=== PATIENT | female | born 1990 | race Caucasian/White ===

== ENCOUNTER 2022-09-27 02:04 | Emergency (ER) | payer OTHER, SELFPAY ==
--- NOTE | 2022-09-27 | ECG_ITS ---
Test Reason : CP Blood Pressure : / mmHG Vent. Rate : 092 BPM Atrial Rate : 092 BPM P-R Int : 122 ms QRS Dur : 074 ms QT Int : 368 ms P-R-T Axes : 082 065 066 degrees QTc Int : 455 ms Normal sinus rhythm Possible Left atrial enlargement Borderline ECG No previous ECGs available Referred By: Generic ED Physician Electronically Signed By:BRENTON KAUFFMAN
--- NOTE | ~2022-09-27 | XR_ITS ---
EXAMINATION: XR CHEST CLINICAL INFORMATION: Chest pain COMPARISON: None available. TECHNIQUE: 2 views of the chest were obtained. FINDINGS: The lungs are well expanded. There is no focal consolidation, edema, or effusion. No pneumothorax. The cardiomediastinal silhouette is within normal limits. No acute osseous abnormality. XR/XR chest 2V IMPRESSION: Clear lungs.
[2022-09-27 02:05] VITALS: BP 164/110; PULSE 95; RESP 18; TEMP 36.6; O2SAT 97; BMI 21.5
[2022-09-27 02:23] LABS: Basophils Percent Auto 0.8 % (0-2); Eosinophils Absolute Auto 0.1 X10*3/uL (0.0-0.4); Eosinophils Percent Auto 2.1 % (0-4); Hemoglobin 13.5 g/dl (12.0-16.0); Imm Gran Abs Auto 0.01 X10*3/uL (0.00-0.03); Imm Gran Pct Auto 0.2 % (0.0-0.4); Lymphocytes Absolute Auto 1.7 X10*3/uL (1.2-4.9); Lymphocytes Percent Auto 31.4 % (20-40); MANUAL DIFF FLAG NO; Mean Corpuscular HGB Conc 33.8 g/dl (31.0-35.0); Mean Corpuscular Hemoglobin 34.1 pg (27.0-33.0); Mean Platelet Volume 9.1 fL (9.4-12.3); Monocytes Absolute Auto 0.6 X10*3/uL (0.1-1.2); Monocytes Percent Auto 10.3 % (2-11); Neutrophils Absolute Auto 2.9 x10*3/uL (2.0-8.3); Neutrophils Percent Auto 55.2 % (45-73); Platelet Count 254 X10*3/uL (160-400); Red Blood Count 3.96 X10*6/uL (4.20-5.50); White Blood Count 5.3 X10*3/uL (4.8-10.8)
[2022-09-27 02:38] LABS: Anion Gap 21 (12-20); Blood Urea Nitrogen 6 mg/dL (9-16); Calcium 10.1 mg/dL (8.4-10.2); Carbon Dioxide 19 mmol/L (22-29); Chloride 104 mmol/L (96-108); Creatinine Clr Calc Pharmacy 70.9; Estimated Glomerular Filt Rate > 60; Glucose Random 98 mg/dL (60-115); Sodium 140 mmol/L (135-145)
[2022-09-27 02:42] LABS: Troponin-I High Sensitivity < 2.7 ng/L (<3.5-17.0)
[2022-09-27 02:46] LABS: HCG Quantitative < 2 mIU/mL
--- NOTE | 2022-09-27 05:16 | PC.NURSE ---
Pt resting quietly with eyes closed. Respiration even and unlabored. Denies any needs at this time.
--- NOTE | 2022-09-27 05:33 | ED.CHESTPAIN ---
HPI - Chest Pain General Chief Complaint: Chest Pain Stated Complaint: Chest pain Time Seen by Provider: 09/27/22 05:32 Source: patient and other (Boyfriend, Matt) Mode of arrival: ambulatory Limitations: no limitations History of Present Illness HPI narrative: 31-year-old male female who presents emergency department for evaluation to use, jaw, neck and chest pain. Patient states she has 2 teeth that need a root canal. She states that the tooth in her left lower jaw has been bothering her over the past week. She states that yesterday afternoon the pain in her left lower jaw became worse. The pain then radiated down her neck to her chest. She states she developed a burning sensation in her left chest which was constant. She states the pain then radiated to her left shoulder as well pain. She states that the pain made her very anxious. She states she has been having difficulty with anxiety for the past week and she has had difficulty sleeping at night. She denied fever, chills, rhinorrhea, sore throat, cough. She states she feels short of breath. She had nausea with no vomiting. Related Data Previous Rx's Medication Instructions Recorded amoxicillin 500 mg capsule 1,000 mg PO BID 7 days #28 caps 09/27/22 lorazepam 1 mg tablet (Ativan) 1 mg PO TID PRN anxiety #10 tabs 09/27/22 Allergies Allergy/AdvReac Type Severity Reaction Status Date / Time No Known Allergies Allergy Verified 09/27/22 02:22 [No Known Allergies*] Review of Systems Review of Systems: Yes all other systems are reviewed and are negative [facility] Past Medical History [facility] Narrative: Past medical history: Anxiety social history: She denies tobacco use. She drinks alcohol 2 times a week she states she drinks 3 or 4 [place] at night to help her sleep. Social History Social History Advance Directives: No Advance Directives Information Provided: No Physical Exam Vital Signs: Vital Signs: Last Vital Signs Temp 97.9 F 09/27/22 02:05 Pulse 95 09/27/22 02:05 Resp 18 09/27/22 02:05 BP 164/110 H 09/27/22 02:05 Pulse Ox 97 09/27/22 02:05 O2 Del Method Room Air 09/27/22 02:05 BMI result Body Mass Index 21.5 Vital signs revealed an elevated blood pressure of 164/110 General: Awake, alert, female patient, very pleasant cooperative in no distress HEENT: Head is normal cephalic and atraumatic, pupils were equal round reactive light, sclera contact however normal, mouth revealed moist membranes, the patient does have tenderness with palpation of tooth 17 with tenderness palpation of the gingiva in this area, there is no obvious abscess. Neck: Supple, no adenopathy Lungs: Clear to auscultation breath sounds symmetric bilaterally Heart: Regular rate rhythm, normal S1-S2, no murmurs rubs gallops Chest: Patient has [id number] left-sided chest wall tenderness Abdomen: Soft, nontender, nondistended with normoactive bowel sounds Back: No CVA tenderness Extremities: Normal Neuro: Nonfocal Medical Decision Making Medical Decision Making [facility] Narrative: 31-year-old female who presents emergency department for evaluation of left lower jaw pain secondary to dental macho with pain radiating down her left neck and her left chest and shoulder. Patient did have an elevated blood pressure but this is most likely caused by anxiety and pain. Patient's examination did reveal tenderness palpation of tooth 17 with tenderness palpation of the gingiva as well. Patient's exam was otherwise unremarkable. Lung evaluation was ordered: CBC, BMP, troponin, serum test, EKG, chest x-ray. 0604: Patient's laboratory evaluation was unremarkable. Twelve EKG was normal pain Chest x-ray was normal. Patient's symptoms are most likely caused by dental caries with pain radiating to her jaw and anxiety. Patient's dental pain was treated with amoxicillin 1000 mg orally here in the emergency department. She was given a prescription for amoxicillin 1000 mg every 12 hours x7 days. Patient's anxiety was treated with Ativan 1 mg orally. She was given a prescription for Ativan 1 mg 3 times a day as needed for anxiety She was given printed and verbal instructions and discharged home. Differential Diagnosis Differential Diagnoses: The differential diagnosis associated with the presentation includes Differential diagnosis includes was not limited to myocardial infarction, myocardial ischemia, musculoskeletal pain, anxiety, dental caries with dental infection Admission/Observation Consideration of admission/observation: Escalation of care including admission/observation considered Lab Data [facility] Lab Attestation statement: I reviewed the patient's lab results. My independent interpretation patient's laboratory evaluation is as follows: CBC, CMP were normal. Quantitative test was negative. High sensitive troponin I was below detectable limits. 09/27/22 02:18 07/31/23 02:18 Labs: Lab Results 09/27/22 09/27/22 09/27/22 Range/Units 02:18 02:18 02:18 WBC 5.3 (4.8-10.8) X10*3/uL RBC 3.96 L (4.20-5.50) X10*6/uL Hgb 13.5 (12.0-16.0) g/dl Hct 40.0 (37.0-47.0) % MCV 101.0 H (80.0-98.0) fL MCH 34.1 H (27.0-33.0) pg MCHC 33.8 (31.0-35.0) g/dl RDW 13.0 (11.0-16.0) % Plt Count 254 (160-400) X10*3/uL MPV 9.1 L (9.4-12.3) fL Immature Gran % (Auto) 0.2 (0.0-0.4) % Neut % (Auto) 55.2 (45-73) % Lymph % (Auto) 31.4 (20-40) % [place] % (Auto) 10.3 (2-11) % Eos % (Auto) 2.1 (0-4) % Baso % (Auto) 0.8 (0-2) % Lymph # (Auto) 1.7 (1.2-4.9) X10*3/uL [place] # (Auto) 0.6 (0.1-1.2) X10*3/uL Eos # (Auto) 0.1 (0.0-0.4) X10*3/uL Baso # (Auto) 0.0 (0.0-0.2) X10*3/uL Abs Immat Gran (auto) 0.01 (0.00-0.03) X10*3/uL Absolute Neuts (auto) 2.9 (2.0-8.3) x10*3/uL Absolute Nucleated RBC 0.000 (0.0-0.012) X10*3/uL Nucleated RBC % (auto) 0.0 (0.0-0.2) /100WBC Sodium 140 (135-145) mmol/L Potassium 4.0 (3.3-5.1) mmol/L Chloride 104 (96-108) mmol/L Carbon Dioxide 19 L (22-29) mmol/L Anion Gap 21 H (12-20) BUN 6 L (9-16) mg/dL Creatinine 0.81 (0.5-1.4) mg/dL Estim Creat Clear Calc 70.9 Estimated GFR > 60 Random Glucose 98 (60-115) mg/dL Calcium 10.1 (8.4-10.2) mg/dL Troponin I High Sens < 2.7 (<3.5-17.0) ng/L Beta HCG, Quant mIU/mL 09/27/22 Range/Units 02:18 WBC (4.8-10.8) X10*3/uL RBC (4.20-5.50) X10*6/uL Hgb (12.0-16.0) g/dl Hct (37.0-47.0) % MCV (80.0-98.0) fL MCH (27.0-33.0) pg MCHC (31.0-35.0) g/dl RDW (11.0-16.0) % Plt Count (160-400) X10*3/uL MPV (9.4-12.3) fL Immature Gran % (Auto) (0.0-0.4) % Neut % (Auto) (45-73) % Lymph % (Auto) (20-40) % [place] % (Auto) (2-11) % Eos % (Auto) (0-4) % Baso % (Auto) (0-2) % Lymph # (Auto) (1.2-4.9) X10*3/uL [place] # (Auto) (0.1-1.2) X10*3/uL Eos # (Auto) (0.0-0.4) X10*3/uL Baso # (Auto) (0.0-0.2) X10*3/uL Abs Immat Gran (auto) (0.00-0.03) X10*3/uL Absolute Neuts (auto) (2.0-8.3) x10*3/uL Absolute Nucleated RBC (0.0-0.012) X10*3/uL Nucleated RBC % (auto) (0.0-0.2) /100WBC Sodium (135-145) mmol/L Potassium (3.3-5.1) mmol/L Chloride (96-108) mmol/L Carbon Dioxide (22-29) mmol/L Anion Gap (12-20) BUN (9-16) mg/dL Creatinine (0.5-1.4) mg/dL Estim Creat Clear Calc Estimated GFR Random Glucose (60-115) mg/dL Calcium (8.4-10.2) mg/dL Troponin I High Sens (<3.5-17.0) ng/L Beta HCG, Quant < 2 mIU/mL Independent Interpretation I performed an independent interpretation of an: EKG and Plain X-Ray Interpretation: My independent interpretation patient's 12 EKG done at 02:10 hours is as follows: Normal sinus rhythm rate and 2, normal RI interval, QRS duration QTC interval, no ST segment elevation, no ST segment depression, inverted T-waves in lead V1 and V2, no PACs, no PVCs. No old EKG for comparison My independent interpretation patient's chest x-ray is as follows: No acute disease Radiology Impression Discussion of test interpretation with radiology: I have reviewed the radiologist's reading. Radiologist Impression: XR chest 2V IMPRESSION: Clear lungs. Dictated By:Silverio Man MD Discharge Plan Discharge Clinical Impression: Pain due to dental caries, Chest pain, Anxiety Patient Disposition: Home, Self-Care Instructions: Toothache (ED), Anxiety (ED) Additional Instructions: Sometime dental pain can get worse if there is an infection, therefore I am going to treat you with an antibiotic to see if this improves your pain Take amoxicillin 500 mg pills, 2 pills every 12 hours for 7 days. Take ibuprofen 200 mg pills, 2 pills every 6 hours as needed for pain or fever. Take Tylenol (acetaminophen) 500 mg pills, 2 pills every 6 hours as needed for pain or fever. Take Ativan 1 mg pills, 1 pill every 6 hours as needed for anxiety. This medication will make you sleepy, do not drive or work while taking this medication. This medication can be addicting, if your concerned about addiction you can ask the pharmacist for less medications or do not get the prescription filled. Follow-up with your doctor in 2 days. Please return to the emergency department if your symptoms get worse or if you develop any symptoms that are concerning to you. Prescriptions: New amoxicillin 500 mg capsule 1,000 mg PO BID 7 Days Qty: 28 0RF lorazepam [Ativan] 1 mg tablet 1 mg PO TID PRN (Reason: anxiety) Qty: 10 0RF Rx Instructions: Patient may request partial fill
[2022-09-27] MEDS: LORazepam 1 MG TABLET PO (05:59)
[2022-09-27] MEDS: Amoxicillin 500 MG CAPSULE 1000 MG PO (06:00)
[2022-09-27 06:07] VITALS: BP 157/100; PULSE 68; RESP 16; O2SAT 97
== END 2022-09-27 06:09 | disposition home or self-care (01) ==
PROVIDERS: Emergency Provider Emergency Medicine Emergency Medical Services
DX: K02.9 Dental caries, unspecified (principal); R07.9 Chest pain, unspecified; F41.9 Anxiety disorder, unspecified
CPT/HCPCS: 36415; 71046; 80048; 84484; 84702; 85025; 93005; 99283; 99285

== ENCOUNTER → 2022-09-27 02:10 | Outpatient (BNV) | payer OTHER, SELFPAY | PROVIDERS: Emergency Provider Emergency Medicine Emergency Medical Services; Visit Provider Internal Medicine | DX: R07.9 Chest pain, unspecified (principal) | CPT/HCPCS: 93010 ==

== ENCOUNTER 2023-08-27 22:22 | Emergency (ER) | payer OTHER, SELFPAY ==
[2023-08-27 22:32] VITALS: BP 141/91; PULSE 95; RESP 20; TEMP 37.1; O2SAT 98; BMI 19.5
[2023-08-27 22:57] LABS: MANUAL DIFF FLAG NO
[2023-08-27 22:58] LABS: Basophils Percent Auto 0.3 % (0-2); Eosinophils Absolute Auto 0.1 X10*3/uL (0.0-0.4); Eosinophils Percent Auto 1.5 % (0-4); Hematocrit 34.1 % (37.0-47.0); Hemoglobin 12.4 g/dl (12.0-16.0); Imm Gran Abs Auto 0.03 X10*3/uL (0.00-0.03); Imm Gran Pct Auto 0.3 % (0.0-0.4); Lymphocytes Absolute Auto 1.4 X10*3/uL (1.2-4.9); Lymphocytes Percent Auto 14.8 % (20-40); Mean Corpuscular HGB Conc 36.4 g/dl (31.0-35.0); Mean Corpuscular Hemoglobin 35.1 pg (27.0-33.0); Mean Corpuscular Volume 96.6 fL (80.0-98.0); Mean Platelet Volume 9.1 fL (9.4-12.3); Monocytes Absolute Auto 0.9 X10*3/uL (0.1-1.2); Monocytes Percent Auto 9.1 % (2-11); Neutrophils Absolute Auto 6.9 x10*3/uL (2.0-8.3); Platelet Count 175 X10*3/uL (160-400); Red Blood Count 3.53 X10*6/uL (4.20-5.50); Red Cell Distribution Width 12.9 % (11.0-16.0); White Blood Count 9.3 X10*3/uL (4.8-10.8)
[2023-08-27 22:59] LABS: Appearance Urine Cloudy; Color Urine Dark Yellow; Glucose Urine UA Negative (Negative); Leukocyte Esterase Urine Large (3+) (Negative); Nitrite Urine Positive (Negative); PH 6.5 (5.0-9.0); Specific Gravity - Urine <= 1.005 (1.005-1.025); UMIC TRIGGER UACC YES; Urine Blood Moderate (2+) (Negative); Urine Ketones Negative (Negative); Urine Protein 30 (1+) mg/dL (Neg-Trace)
[2023-08-27 23:06] LABS: Bacteria Urine 1+ (None Seen); Hyaline Casts Urine 0-2 /LPF (0-2); Squamous Epithelial Cell Urine 0-2 /HPF (0-2); UACC Culture Trigger YES; WBC Urine >50 /HPF (0-5)
[2023-08-27 23:10] LABS: Anion Gap 19 (12-20); Blood Urea Nitrogen 3 mg/dL (9-16); Calcium 9.7 mg/dL (8.4-10.2); Carbon Dioxide 24 mmol/L (22-29); Chloride 95 mmol/L (96-108); Creatinine Clr Calc Pharmacy 92.7; Estimated Glomerular Filt Rate > 60; Glucose Random 87 mg/dL (60-115); Potassium 3.8 mmol/L (3.3-5.1); Sodium 134 mmol/L (135-145)
--- NOTE | 2023-08-27 23:13 | ED.GENADULT ---
HPI - General Adult General Chief complaint: General Medical Stated complaint: ?UTI Time Seen by Provider: 08/27/23 23:06 Source: patient Mode of arrival: ambulatory Limitations: no limitations History of Present Illness ED Provider: Kobe HERNÁNDEZ HPI narrative: 32-year-old female presents with urinary frequency, burning, urgency since worsening, patient reports this feels like her typical UTI however a little bit worse, she has been taking azo for the past 2 days with little to no relief. Today she started to have a sore sensation to her lower back bilaterally and very mild suprapubic abdominal discomfort. She denies fevers, chills, nausea, vomiting, headache, vision changes, chest pain, shortness of breath Related Data Previous Rx's ?Medication ?Instructions ?Recorded amoxicillin 500 mg capsule 1,000 mg (2 x 500 mg) PO BID 7 09/27/22 days #28 caps lorazepam 1 mg tablet (Ativan) 1 mg PO TID PRN anxiety #10 tabs 09/27/22 cefuroxime axetil 250 mg tablet 250 mg PO BID 7 days #14 tabs 08/27/23 Allergies Allergy/AdvReac Type Severity Reaction Status Date / Time No Known Allergies Allergy Verified 08/27/23 22:37 [No Known Allergies*] Review of Systems Review of Systems: Yes all other systems are reviewed and are negative [facility] Past Medical History Attestation statement: The following information was validated with the patient. Source: old records reviewed and nursing notes reviewed Social History Social History Advance Directives: No Advance Directives Information Provided: No Do you have a plan to hurt others: No Plan Physical Exam ED Vital Signs: Vital Signs - 24 hr 08/27/23 22:32 Temperature 98.7 F Pulse Rate 95 Respiratory Rate 20 Blood Pressure 141/91 H Pulse Oximetry 98 Oxygen Delivery Method Room Air BMI result Body Mass Index 19.5 vss Appearance: Alert.? Oriented X3.? No acute distress.? Head: Normocephalic, atraumatic, no step-offs or deformities Eyes: Pupils equal, round and reactive to light.? CVS: Normal heart rate and rhythm.? Pulses normal.? Respiratory: No respiratory distress.? Breath sounds normal.? Abdomen: Soft and nontender.? Skin: Skin warm and dry.? Normal skin color.? Normal skin turgor.? Extremities: No lower extremity edema.? No calf ttp. 5/5 strength to bilateral upper and lower extremities Back: No midline tenderness, no C-spine tenderness, full range of motion, no CVA tenderness bilaterally Neuro: Oriented X 3.? No motor deficit.? No sensory deficit. CN 2-12 intact Course Reevaluation(s) Reevaluation #1: CBC unremarkable. Chemistry no acute findings requiring intervention. UA with infection. Will discharge patient home on Ceftin. Educated patient on diagnosis and treatment plan, answered all question, patient verbalizes understanding. At this time patient will be discharged home, advised to return with new or worsening symptoms. Educated on worrisome signs and symptoms and when to return. At this time I feel comfortable discharge home. Time: 23:16 Medical Decision Making Medical Decision Making MDM Narrative: 32-year-old female presents with UTI symptoms since not improving. Taking azo [id number]. Physical exam benign. No CVA tenderness History and physical exam concerning for UTI versus cystitis. Unlikely obstructing uropathy, kidney stone. No signs of acute abdomen. Unlikely . No concerns for STDs. Plan urine basic labs. Differential Diagnosis Differential Diagnoses: The differential diagnosis associated with the presentation includes History and physical exam concerning for UTI versus cystitis. Unlikely obstructing uropathy, kidney stone. No signs of acute abdomen. Unlikely . No concerns for STDs. Lab Data [facility] Lab Attestation statement: I reviewed the patient's lab results. 08/27/23 22:47 08/27/23 22:47 Labs: Lab Results 08/27/23 08/27/23 Range/Units 22:47 22:51 WBC 9.3 (4.8-10.8) X10*3/uL RBC 3.53 L (4.20-5.50) X10*6/uL Hgb 12.4 (12.0-16.0) g/dl Hct 34.1 L (37.0-47.0) % MCV 96.6 (80.0-98.0) fL MCH 35.1 H (27.0-33.0) pg MCHC 36.4 H (31.0-35.0) g/dl RDW 12.9 (11.0-16.0) % Plt Count 175 D (160-400) X10*3/uL MPV 9.1 L (9.4-12.3) fL Immature Gran % (Auto) 0.3 (0.0-0.4) % Neut % (Auto) 74.0 H (45-73) % Lymph % (Auto) 14.8 L (20-40) % [place] % (Auto) 9.1 (2-11) % Eos % (Auto) 1.5 (0-4) % Baso % (Auto) 0.3 (0-2) % Lymph # (Auto) 1.4 (1.2-4.9) X10*3/uL [place] # (Auto) 0.9 (0.1-1.2) X10*3/uL Eos # (Auto) 0.1 (0.0-0.4) X10*3/uL Baso # (Auto) 0.0 (0.0-0.2) X10*3/uL Abs Immat Gran (auto) 0.03 (0.00-0.03) X10*3/uL Absolute Neuts (auto) 6.9 (2.0-8.3) x10*3/uL Absolute Nucleated RBC 0.000 (0.0-0.012) X10*3/uL Nucleated RBC % (auto) 0.0 (0.0-0.2) /100WBC Sodium 134 L (135-145) mmol/L Potassium 3.8 (3.3-5.1) mmol/L Chloride 95 L (96-108) mmol/L Carbon Dioxide 24 (22-29) mmol/L Anion Gap 19 (12-20) BUN 3 L (9-16) mg/dL Creatinine 0.63 (0.5-1.4) mg/dL Estim Creat Clear Calc 92.7 Estimated GFR > 60 Random Glucose 87 (60-115) mg/dL Calcium 9.7 (8.4-10.2) mg/dL Urine Color Dark Yellow Urine Appearance Cloudy Urine pH 6.5 (5.0-9.0) Ur Specific [place] <= 1.005 (1.005-1.025) Urine Protein 30 (1+) H (Neg-Trace) mg/dL Urine Glucose (UA) Negative (Negative) mg/dL Urine Ketones Negative (Negative) mg/dL Urine Blood Moderate (2+) H (Negative) Urine Nitrite Positive H (Negative) Ur Leukocyte Esterase Large (3+) H (Negative) Urine RBC 3-5 H (0-2) /HPF Urine WBC >50 H (0-5) /HPF Ur Squamous Epith Cells 0-2 (0-2) /HPF Urine Bacteria 1+ (None Seen) Hyaline Casts 0-2 (0-2) /LPF Tests considered The following testing was considered but not selected: Patient nontoxic appearing, normal labs, no indication for CT abdomen and pelvis. I do not suspect pyelonephritis or obstructing uropathy. Critical Care Time Critical Care Time Critical Care Time: No Discharge Plan Discharge Clinical Impression: UTI (urinary tract infection) Patient Disposition: Home, Self-Care Instructions: Urinary Tract Infection in Women (ED) Additional Instructions: Take your medications as prescribed. If you were prescribed antibiotics today, it is important that you take your medication to their entirety, do not skip any doses, do not finish them early. Follow-up with your primary care provider this week. Return to the emergency department with new or worsening symptoms. Such as fevers, chills, chest pain, shortness of breath, nausea, vomiting, dizziness, headache, vision changes, lethargy In case of emergency call 911 Prescriptions: New cefuroxime axetil 250 mg tablet 250 mg PO BID 7 Days Qty: 14 0RF No Action amoxicillin 500 mg capsule 1,000 mg PO BID 7 Days Qty: 28 0RF lorazepam [Ativan] 1 mg tablet 1 mg PO TID PRN (Reason: anxiety) Qty: 10 0RF Rx Instructions: Patient may request partial fill Referrals: [facility] [place]Provider Group] - 2 days Physician,Unknown J [Primary Care Provider] - 2 days Print Language: Martiniquais
[2023-08-27 23:16] VITALS: BP 136/80; PULSE 90; RESP 18; TEMP 36.8; O2SAT 98
[2023-08-27 23:21] LABS: UPreg QC Valid YES; Urine Pregnancy NEGATIVE (NEGATIVE)
[2023-08-27 23:49] LABS: HCG Quantitative < 2 mIU/mL
== END 2023-08-27 23:19 | disposition home or self-care (01) ==
PROVIDERS: Physician Assistant; Emergency Provider Emergency Medicine
DX: N39.0 Urinary tract infection, site not specified (principal); R35.0 Frequency of micturition
CPT/HCPCS: 36415; 80048; 81001; 81025; 84702; 85025; 87086; 87088; 87186; 99282; 99283

== ENCOUNTER 2023-09-24 20:41 | Emergency (ER) | payer OTHER, SELFPAY ==
--- NOTE | ~2023-09-24 | CT_ITS ---
EXAMINATION: CT ABDOMEN AND PELVIS WITH CONTRAST CLINICAL INFORMATION: Pelvic pain COMPARISON: None available. TECHNIQUE: Multidetector volumetric images were obtained from the superior aspect of the liver through the pubic symphysis following administration 85 mL of Omnipaque 350 intravenous contrast. Sagittal and coronal reformatted images were obtained on the technologist's workstation. Oral contrast: No This CT examination was performed using dose optimization techniques as appropriate, variously including the following: *Automated exposure control *Adjustment of mA and/or kV according to patient size (this includes techniques or standardized protocols for targeted exams where dose is matched to indication/reason for exam; i.e. extremities or head) *Use of iterative reconstruction technique DLP: 291 mGy-cm FINDINGS: LUNG BASES: The visualized lung bases are unremarkable. LIVER, GALLBLADDER, AND BILIARY TREE: The liver is normal in size, shape, and attenuation. No focal hepatic lesion or biliary ductal dilatation is present. The gallbladder is unremarkable with no evidence of radiopaque gallstones, gallbladder wall thickening, or obvious pericholecystic inflammatory changes. PANCREAS: Unremarkable. SPLEEN: Unremarkable. ADRENAL GLANDS: Unremarkable. KIDNEYS AND URETERS: The kidneys are normal in size, shape, and attenuation. No hydronephrosis, hydroureter, or calculi seen. No perinephric stranding. BLADDER: Unremarkable. GASTROINTESTINAL TRACT: The small and large bowel are unremarkable. The appendix is unremarkable. ABDOMINAL WALL: No significant hernia is appreciated. LYMPH NODES: Normal. VASCULAR: Unremarkable. PELVIC VISCERA: Anteverted uterus. Right adnexal cyst measures 4.9 cm; no follow-up recommended. OSSEOUS STRUCTURES: Unremarkable. CT/CT abdomen pelvis w IV con IMPRESSION: No acute abdominopelvic pathology. Fleischner guidelines were followed.
[2023-09-24 20:52] VITALS: BP 112/88; PULSE 91; RESP 16; TEMP 37.4; O2SAT 100; BMI 19.3
[2023-09-24 21:16] LABS: MANUAL DIFF FLAG NO
[2023-09-24 21:26] LABS: Appearance Urine Cloudy; Color Urine Yellow; Glucose Urine UA Negative (Negative); Leukocyte Esterase Urine Trace (Negative); Nitrite Urine Negative (Negative); UMIC TRIGGER UACC YES; UPreg QC Valid YES; Urine Blood Large (3+) (Negative); Urine Ketones >=160 mg/dL (Negative); Urine Pregnancy NEGATIVE (NEGATIVE); Urine Protein Trace mg/dL (Neg-Trace)
[2023-09-24 21:28] LABS: Bacteria Urine Trace (None Seen); Hyaline Casts Urine 0-2 /LPF (0-2); WBC Urine 0-5 /HPF (0-5)
[2023-09-24 21:29] LABS: Basophils Percent Auto 0.8 % (0-2); Eosinophils Percent Auto 0.5 % (0-4); Hematocrit 36.3 % (37.0-47.0); Imm Gran Abs Auto 0.01 X10*3/uL (0.00-0.03); Imm Gran Pct Auto 0.3 % (0.0-0.4); Lymphocytes Absolute Auto 0.7 X10*3/uL (1.2-4.9); Lymphocytes Percent Auto 17.4 % (20-40); Mean Corpuscular HGB Conc 35.8 g/dl (31.0-35.0); Mean Corpuscular Volume 97.8 fL (80.0-98.0); Mean Platelet Volume 9.3 fL (9.4-12.3); Monocytes Absolute Auto 0.5 X10*3/uL (0.1-1.2); Monocytes Percent Auto 11.6 % (2-11); Neutrophils Absolute Auto 2.8 x10*3/uL (2.0-8.3); Neutrophils Percent Auto 69.4 % (45-73); Platelet Count 212 X10*3/uL (160-400); Red Blood Count 3.71 X10*6/uL (4.20-5.50); Red Cell Distribution Width 12.1 % (11.0-16.0)
[2023-09-24 21:32] LABS: Alanine Aminotransferase 69 U/L (0-31); Albumin Level 4.6 g/dL (3.5-5.0); Alkaline Phosphatase 58 U/L (39-117); Anion Gap 20 (12-20); Aspartate Amino Transferase 71 U/L (5-31); Bilirubin Direct 0.2 mg/dL (0.0-0.5); Bilirubin Total 0.6 mg/dL (0.0-1.0); Blood Urea Nitrogen 10 mg/dL (9-16); Calcium 9.7 mg/dL (8.4-10.2); Carbon Dioxide 17 mmol/L (22-29); Chloride 99 mmol/L (96-108); Creatinine Clr Calc Pharmacy 70.6; Estimated Glomerular Filt Rate > 60; Glucose Random 94 mg/dL (60-115); Lipase 17 U/L (8-78); Potassium 4.7 mmol/L (3.3-5.1); Sodium 131 mmol/L (135-145); Total Protein 7.5 g/dL (6.5-8.0)
--- NOTE | 2023-09-24 23:09 | ED_ITS ---
HPI - General Adult General Chief complaint: Abdominal Pain Stated complaint: cold sweats on and off/doesn't feel right Time Seen by Provider: 09/24/23 22:48 Source: patient, RN notes reviewed and old records reviewed Mode of arrival: ambulatory Limitations: no limitations History of Present Illness ED Provider: Maame HARDIN narrative: 32-year-old female past medical history significant for anxiety presents for evaluation of sweats, chills ?pain in my uterus. Patient states that she had been feeling generally unwell all day today. She reports that her menstrual cycle started today and she has not had one for 2 months. Patient states he took some Advil earlier in her abdominal pain has improved She is having a mild headache. Denies any respiratory symptoms, sore throat, cough, congestion, shortness of breath Patient states that she did have a UTI diagnosed about a month ago and did not completely entire course of antibiotics She is concerned that she still has a UTI Patient states that she attempted to put her tampon an earlier today and ?I felt like it brushed against something and I had severe pain and could not tolerate the tampon. ? Related Data Previous Rx's ?Medication ?Instructions ?Recorded amoxicillin 500 mg capsule 1,000 mg (2 x 500 mg) PO BID 7 09/27/22 days #28 caps lorazepam 1 mg tablet (Ativan) 1 mg PO TID PRN anxiety #10 tabs 09/27/22 cefuroxime axetil 250 mg tablet 250 mg PO BID 7 days #14 tabs 08/27/23 nitrofurantoin 100 mg PO Q12H 5 days #10 caps 09/25/23 monohydrate/macrocrystals 100 mg capsule (Macrobid) Allergies Allergy/AdvReac Type Severity Reaction Status Date / Time No Known Allergies Allergy Verified 09/24/23 20:55 [No Known Allergies*] Review of Systems 2 Constitutional: Constitutional: Reports body ache(s), Reports chills, Denies fever(s) and Reports headache(s) Eyes: Eyes: Denies blurry vision ENT: Denies vertigo, Denies dizziness, Reports headache(s) and Denies sore throat Cardiovascular: Cardiovascular: Denies chest pain and Denies dyspnea Respiratory: Respiratory: Denies cough and Denies dyspnea Gastrointestinal: Gastrointestinal: Reports abdominal pain, Denies nausea and Denies vomiting Genitourinary: Genitourinary: Reports abnormal menses, Denies dysuria and Reports pelvic pain Musculoskeletal: Musculoskeletal: Denies back pain Integumentary/Breasts: Skin/Breast: Denies rash Neurologic: Denies vertigo, Denies dizziness and Reports headache(s) PMFSH Social History Social History Smoked in Last 30 Days: No Advance Directives: No Advance Directives Information Provided: No Patient : No Physical Exam ED Vital Signs: Vital Signs - 24 hr 09/24/23 20:52 09/24/23 23:53 09/25/23 02:01 Temperature 99.4 F 98.2 F 98.5 F Pulse Rate 91 91 87 Respiratory Rate 16 16 16 Blood Pressure 112/88 142/90 H 146/97 H Pulse Oximetry 100 100 97 Oxygen Delivery Method Room Air Room Air Room Air BMI result Body Mass Index 19.3 Const General: healthy appearing, comfortable, no acute distress, alert and awake Nutritional Appearance: well nourished Orientation/consciousness: patient oriented x3 HENMT Head: Yes normocephalic and Yes atraumatic Eyes Eyelids: Yes eyelids normal Conjunctivae: conjunctivae normal Sclerae: sclerae normal Corneas: corneas normal Pupils: Equal, round and reactive pupils present EOM: EOMs intact bilaterally Neck Neck: Yes full ROM Resp Effort & Inspection: normal respiratory effort, able to speak in complete sentences, no audible wheezes and not labored Auscultation: clear to auscultation bilaterally Cardio Rate: regular rate Rhythm: regular rhythm GI Inspection: No distended Palpation (GI): Soft to palpation, not firm, nontender, no guarding and not rigid Other: exam performed by attending, Dr Paul as patient requested female provider External Female Exam: normal external appearance, normal appearance of the urethra, No erythema and No external swelling Speculum Exam - Vagina: normal appearance of the vagina and normal palpation Speculum Exam - Cervix: normal appearance of the cervix, Cervical os closed, no masses and no nabothian cysts Bimanual exam- vagina & uterus: normal palpation and no cervical motion tenderness Bimanual Exam- Adnexa, other: No adnexal tenderness Skin General skin exam: elasticity normal Neuro General: patient oriented x3 Cranial nerves: Yes Equal, round and reactive pupils present and Yes Bilaterally intact EOM present Cognition (Neuro): normal cognition Extrem Other: Moving all extremities well without any obvious deformities Medications Administered Discontinued Medications Generic Name Dose Route Start Last Admin Trade Name Natasha PRN Reason Stop Dose Admin Sodium Chloride 1,000 mls @ 999 mls/hr 09/24/23 23:15 09/24/23 23:20 Ns IV 09/25/23 00:15 999 mls/hr .Q1H1M SHANNEN Administration Iohexol 85 ml 09/24/23 23:44 09/24/23 23:44 Iohexol 350 Mg/Ml 100 Ml Infus..Btl IV 09/24/23 23:45 85 ml ONCE ONE Administration Medical Decision Making Medical Decision Making [facility] Narrative: 32-year-old female presents for evaluation of subjective fevers and chills as well as pelvic pain. I offered pelvic examination as well as imaging. The patient is open to pelvic examination. After I left the room she informed nursing staff that she would prefer a female provider if available. The patient has no respiratory symptoms, lungs are clear to auscultation, she is not hypoxic, will hold off on chest x-ray at this time. The urinalysis does not appear to show acute infection. There is blood with the patient reports she is on her menstrual cycle. Culture pending Differential Diagnosis Differential Diagnoses: The differential diagnosis associated with the presentation includes UTI Bartholin cyst Abscess Cervicitis Endometriosis Endometriosis PID Lab Data [facility] Lab Attestation statement: I reviewed the patient's lab results. Patient has a mild leukopenia to 4.0, no significant anemia. Patient's sodium is low at 131, unclear significance, her CO2 is 17 which may be related to hyperventilation as the patient endorses anxiety. The patient does have a mild elevation of AST and ALT 271 and 69 respectively. Unclear significance at this time. Otherwise renal function within normal limits, no other chemistry abnormalities 09/24/23 21:13 09/24/23 21:13 Labs: Lab Results 09/24/23 09/24/23 Range/Units 21:13 21:17 WBC 4.0 L (4.8-10.8) X10*3/uL RBC 3.71 L (4.20-5.50) X10*6/uL Hgb 13.0 (12.0-16.0) g/dl Hct 36.3 L (37.0-47.0) % MCV 97.8 (80.0-98.0) fL MCH 35.0 H (27.0-33.0) pg MCHC 35.8 H (31.0-35.0) g/dl RDW 12.1 (11.0-16.0) % Plt Count 212 (160-400) X10*3/uL MPV 9.3 L (9.4-12.3) fL Immature Gran % (Auto) 0.3 (0.0-0.4) % Neut % (Auto) 69.4 (45-73) % Lymph % (Auto) 17.4 L (20-40) % [place] % (Auto) 11.6 H (2-11) % Eos % (Auto) 0.5 (0-4) % Baso % (Auto) 0.8 (0-2) % Lymph # (Auto) 0.7 L (1.2-4.9) X10*3/uL [place] # (Auto) 0.5 (0.1-1.2) X10*3/uL Eos # (Auto) 0.0 (0.0-0.4) X10*3/uL Baso # (Auto) 0.0 (0.0-0.2) X10*3/uL Abs Immat Gran (auto) 0.01 (0.00-0.03) X10*3/uL Absolute Neuts (auto) 2.8 (2.0-8.3) x10*3/uL Absolute Nucleated RBC 0.000 (0.0-0.012) X10*3/uL Nucleated RBC % (auto) 0.0 (0.0-0.2) /100WBC Sodium 131 L (135-145) mmol/L Potassium 4.7 D (3.3-5.1) mmol/L Chloride 99 (96-108) mmol/L Carbon Dioxide 17 L (22-29) mmol/L Anion Gap 20 (12-20) BUN 10 (9-16) mg/dL Creatinine 0.82 (0.5-1.4) mg/dL Estim Creat Clear Calc 70.6 Estimated GFR > 60 Random Glucose 94 (60-115) mg/dL Calcium 9.7 (8.4-10.2) mg/dL Total Bilirubin 0.6 (0.0-1.0) mg/dL Direct Bilirubin 0.2 (0.0-0.5) mg/dL AST 71 H (5-31) U/L ALT 69 H (0-31) U/L Alkaline Phosphatase 58 (39-117) U/L Total Protein 7.5 (6.5-8.0) g/dL Albumin 4.6 (3.5-5.0) g/dL Lipase 17 (8-78) U/L Urine Color Yellow Urine Appearance Cloudy Urine pH 6.0 (5.0-9.0) Ur Specific [place] 1.020 (1.005-1.025) Urine Protein Trace (Neg-Trace) mg/dL Urine Glucose (UA) Negative (Negative) mg/dL Urine Ketones >=160 (Negative) mg/dL Urine Blood Large (3+) H (Negative) Urine Nitrite Negative (Negative) Ur Leukocyte Esterase Trace H (Negative) Urine RBC 6-10 H (0-2) /HPF Urine WBC 0-5 (0-5) /HPF Ur Squamous Epith Cells 11-20 (0-2) /HPF Urine Bacteria Trace (None Seen) Hyaline Casts 0-2 (0-2) /LPF Urine Test NEGATIVE (NEGATIVE) Discharge Plan Discharge Clinical Impression: Pelvic pain, Ovarian cyst Patient Disposition: Home, Self-Care Instructions: Ovarian Cyst (ED), Pelvic Pain (ED) Additional Instructions: Your workup showed a 4.9 cm ovarian cyst on the right. Your blood work showed a slightly low sodium that was treated with IV fluids Your urine headache questionable infection, given the pelvic pain I recommend taking nitrofurantoin twice daily for 5 days Follow-up with OBGYN, return for new or worsening symptoms Prescriptions: New nitrofurantoin monohyd/m-cryst [Macrobid] 100 mg capsule 100 mg PO Q12H 5 Days Qty: 10 0RF Rx Instructions: must administer with a meal/food No Action amoxicillin 500 mg capsule 1,000 mg PO BID 7 Days Qty: 28 0RF lorazepam [Ativan] 1 mg tablet 1 mg PO TID PRN (Reason: anxiety) Qty: 10 0RF Rx Instructions: Patient may request partial fill cefuroxime axetil 250 mg tablet 250 mg PO BID 7 Days Qty: 14 0RF Referrals: Jimy Longo MD [Physician] - (pelvic pain, ovarian cyst) Print Language: Malaysian
[2023-09-24] MEDS: 0.9 % Sodium Chloride 1,000 ML 999 ML IV (23:20)
[2023-09-24] MEDS: iohexoL 350 MG/ML 100 ML INFUS..BTL 85 ML IV (23:44)
[2023-09-24 23:53] VITALS: BP 142/90; PULSE 91; RESP 16; TEMP 36.8; O2SAT 100
--- NOTE | 2023-09-24 23:54 | MHC.EDTECH ---
This pct assumed care of Patient at 2300 ,vitals taken ,This pct oracle analyst Provider Petwrs with Patient pelvic exam ,sample collected and sent to lab .
[2023-09-25 02:01] VITALS: BP 146/97; PULSE 87; RESP 16; TEMP 36.9; O2SAT 97
[2023-09-25 06:10] VITALS: BP 112/68; PULSE 68; RESP 16; TEMP 36.6; O2SAT 99
[2023-09-25 08:53] LABS: Bacterial Vaginosis PCR NEGATIVE (Negative); Candida Group PCR NOT DETECTED (Not Detect); Candida glab krusei PCR NOT DETECTED (Not Detect); Trichomonas vaginalis PCR NOT DETECTED (Not Detect)
[2023-09-25 10:59] LABS: CT PCR NOT DETECTED (Not Detect.); NG PCR NOT DETECTED (Not Detect.)
== END 2023-09-25 02:30 | disposition home or self-care (01) ==
PROVIDERS: Physician Assistant; Emergency Provider Emergency Medicine
DX: R10.2 Pelvic and perineal pain (principal); N83.291 Other ovarian cyst, right side; Z79.899 Other long term (current) drug therapy
CPT/HCPCS: 0352U; 36415; 74177; 80048; 80076; 81001; 81025; 83690; 85025; 87491; 87591; 99284; Q9967

== ENCOUNTER 2024-03-17 12:54 | Inpatient (IN) | payer OTHER, SELFPAY ==
--- NOTE | ~2024-03-17 | US_ITS ---
CLINICAL HISTORY: Pelvic pain Exam: 1. Pelvic ultrasound, transabdominal and transvaginal evaluation. Duplex ultrasound of the ovaries. Comparison: Noncontrast CT of the pelvis from earlier today. Findings: Transabdominal and transvaginal pelvic ultrasound study was performed. Urinary bladder is mildly distended on the transabdominal images. Uterus is anteverted. Uterus measures 6.6 x 3.4 x 3.9 cm in size. Myometrium is heterogeneous without fibroid. Endometrial stripe measures 8 mm in thickness without mass, polyp, or focal thickening. There is mild heterogeneity of the endometrial stripe. Nabothian cysts are evident. Right ovary measures 3.5 x 2.4 x 1.7 cm in size. Simple cyst within the right ovary measures 1.4 x 1.8 x 1.7 cm in size. Left ovary measures 3.2 x 2.3 x 2.9 cm in size. Simple cyst within the left ovary measures 2.4 x 1.8 x 2.0 cm in size. Small volume free pelvic fluid. Duplex evaluation of the ovaries was performed. This included real-time grayscale, color spectral Doppler analysis, and color Doppler flow imaging. Appropriate blood flow to both ovaries. Incidental note is made of fluid-filled loops of bowel within the pelvis. Impression: Simple bilateral ovarian cysts. Otherwise, unremarkable pelvic ultrasound. This document has been electronically signed by: Ramos Pace MD on 03/17/2024 19:00:55
--- NOTE | ~2024-03-17 | CT_ITS ---
CLINICAL HISTORY: ? stone Exam: CT abdomen and pelvis without intravenous contrast. Comparison: September 24, 2023. Findings: CT abdomen: Lung bases are clear. No acute bony lesions. No focal lesions identified within the unenhanced liver aside from focal fatty infiltration adjacent to the falciform ligament. Unenhanced spleen, pancreas, gallbladder, and adrenal glands are unremarkable. Mild dilation of the right renal collecting system and right ureter with right periureteral edema. However, no stones are seen within the right kidney or right ureter. Mild prominence of the left renal collecting system and left ureter without stone disease. Scattered small bowel air-fluid levels with areas of small-bowel wall thickening and mild small bowel dilation measuring up to 3.1 cm. This is within the left midabdomen and pelvis. No free fluid or free air. CT pelvis: No focal areas of colonic wall thickening are identified. No significant colonic distention is seen. No findings of appendicitis. Fluid-filled loops of mildly dilated small bowel are seen within the pelvis with areas of small-bowel wall thickening and small-bowel air-fluid levels. No well-defined transition point is identified. Concentric wall thickening of the urinary bladder measures up to 14 mm. No bladder calculi. No free fluid or free air. Impression: 1. Mild prominence of the renal collecting systems bilaterally without stone disease. Given the wall thickening of the urinary bladder, this may be related to ascending urinary tract infection. Clinical correlation advised. 2. Mild small bowel dilation with small bowel wall thickening and scattered small bowel air-fluid levels. No discrete transition point is identified to suggest obstruction. Therefore, this could be related to infectious or inflammatory enteritis or early/partial small bowel obstruction. Clinical correlation advised. This document has been electronically signed by: Ramos Pace MD on 03/17/2024 17:57:33
[2024-03-17 13:09] VITALS: BP 119/89; PULSE 114; RESP 19; TEMP 36.6; O2SAT 98; BMI 18.5
[2024-03-17 13:57] LABS: MANUAL DIFF FLAG NO
[2024-03-17 13:58] LABS: Basophils Percent Auto 0.4 % (0-2); Eosinophils Absolute Auto 0.1 X10*3/uL (0.0-0.4); Eosinophils Percent Auto 0.7 % (0-4); Hematocrit 37.7 % (37.0-47.0); Hemoglobin 13.5 g/dl (12.0-16.0); Imm Gran Abs Auto 0.03 X10*3/uL (0.00-0.03); Imm Gran Pct Auto 0.3 % (0.0-0.4); Lymphocytes Absolute Auto 0.5 X10*3/uL (1.2-4.9); Lymphocytes Percent Auto 5.5 % (20-40); Mean Corpuscular HGB Conc 35.8 g/dl (31.0-35.0); Mean Corpuscular Hemoglobin 34.6 pg (27.0-33.0); Mean Corpuscular Volume 96.7 fL (80.0-98.0); Mean Platelet Volume 9.1 fL (9.4-12.3); Monocytes Absolute Auto 0.5 X10*3/uL (0.1-1.2); Monocytes Percent Auto 5.7 % (2-11); Neutrophils Percent Auto 87.4 % (45-73); Platelet Count 180 X10*3/uL (160-400); Red Cell Distribution Width 11.4 % (11.0-16.0); White Blood Count 9.1 X10*3/uL (4.8-10.8)
[2024-03-17 14:00] LABS: Appearance Urine Cloudy; Color Urine Orange; Leukocyte Esterase Urine Moderate (2+) (Negative); PH 6.5 (5.0-9.0); Specific Gravity - Urine 1.025 (1.005-1.025); UMIC TRIGGER UACC YES; Urine Blood Large (3+) (Negative)
[2024-03-17 14:01] LABS: UPreg QC Valid YES; Urine Pregnancy NEGATIVE (NEGATIVE)
[2024-03-17 14:08] LABS: Bacteria Urine 4+ (None Seen); Hyaline Casts Urine 0-2 /LPF (0-2); RBC Urine >20 /HPF (0-2); UACC Culture Trigger YES; WBC Urine >50 /HPF (0-5)
[2024-03-17 14:18] LABS: Anion Gap 15 (12-20); Blood Urea Nitrogen 3 mg/dL (9-16); Calcium 9.6 mg/dL (8.4-10.2); Carbon Dioxide 25 mmol/L (22-29); Chloride 99 mmol/L (96-108); Creatinine Clr Calc Pharmacy 72.4; Estimated Glomerular Filt Rate > 60; Glucose Random 187 mg/dL (60-115); Potassium 3.9 mmol/L (3.3-5.1); Sodium 135 mmol/L (135-145)
--- NOTE | 2024-03-17 16:31 | ED.FEMALEGU ---
HPI - Female Genitourinary General Chief complaint: Urogenital-Female Stated complaint: prolapsed cervix estreme pain in uterus multip iss Time Seen by Provider: 03/17/24 16:20 Source: patient Mode of arrival: ambulatory Limitations: no limitations History of Present Illness HPI Narrative: This is a 33 years old female patient presented to the emergency department complaining of dysuria hematuria lower abdominal pain lower back pain. MD elicited complaint: dysuria and UTI Pertinent past history: other (History of recurrent UTI) Onset (ago): day(s) (2) Severity: moderate Female Urogenital Radiation: Non-Radiating Quality of pain: cramping Consistency: constant Vaginal bleeding: none Related Data Home Medications ?Medication ?Instructions ?Recorded ?Confirmed hydroxyzine HCl 25 mg tablet 25 mg PO TID PRN anxiety 03/17/24 03/17/24 ibuprofen 200 mg tablet (Advil) 400 mg PO Q6H PRN Pain 03/17/24 03/17/24 Allergies Allergy/AdvReac Type Severity Reaction Status Date / Time No Known Allergies Allergy Verified 03/17/24 13:12 [No Known Allergies*] Review of Systems Constitutional: Constitutional: Reports no additional constitutional complaints ENT: Reports system reviewed and no additional complaints, except as documented Respiratory: Respiratory: Reports no additional respiratory complaints [facility] Past Medical History Attestation statement: The following information was validated with the patient. [facility] Narrative: UTI/anxiety Medical History (Updated 03/17/24 @ 18:37 by Myles Luu MD) Mood disorder Social History Social History Smoked in Last 30 Days: No Use of substances other than those prescribed or required for medical reasons: No Advance Directives: No Advance Directives Information Provided: No Do you have a plan to hurt others: No Plan Patient : No Physical Exam Vital Signs: Vital Signs: Last Vital Signs Temp 98 F 03/17/24 13:09 Pulse 95 03/17/24 17:18 Resp 18 03/17/24 17:18 BP 128/88 03/17/24 17:18 Pulse Ox 98 03/17/24 17:18 O2 Del Method Room Air 03/17/24 17:18 BMI result Body Mass Index 18.5 Patient looks well not toxic appearing very anxious Const: General: cooperative, comfortable and no acute distress Orientation/consciousness: patient oriented x3 HEENT: Head: Yes normal to inspection General nose exam: Normal external nose present Face and sinus: Yes normal facial exam Mouth: Normal oral and palatal mucosa present Throat: Yes posterior oropharynx normal Neck: Neck: Yes normal visual inspection Resp: Effort & Inspection: normal respiratory effort Auscultation: clear to auscultation bilaterally Cardio: Jugular venous distension: no JVD Rate: regular rate Rhythm: regular rhythm GI: Inspection: Yes normal to inspection Palpation (GI): Soft to palpation, not firm, nontender and no guarding Percussion: Yes normal to percussion Auscultation: normal bowel sounds Neuro: General: patient oriented x3 Course Reevaluation(s) Reevaluation #1: The clinical picture is consistent with UTI thickening of the bladder perhaps pyelonephritis, she does not have any fever and she he has no hypotension. We will admit the patient for symptom control pain medicine we will give ceftriaxone discussed with the hospitalist Reevaluation #2: Pelvic ultrasound showed simple bilateral ovarian cysts uterus within normal limit Medications Administered Generic Name Dose Route Start Last Admin Trade Name Freq PRN Reason Stop Dose Admin Sodium Chloride 1,000 mls @ 999 mls/hr 03/17/24 18:30 03/17/24 18:43 Ns IVCONT 03/17/24 19:30 999 mls/hr .Q1H1M SHANNEN Administration Discontinued Medications Generic Name Dose Route Start Last Admin Trade Name Freq PRN Reason Stop Dose Admin Ceftriaxone Sodium 1 gm 03/17/24 16:45 03/17/24 16:48 Ceftriaxone Sodium 1 Gm Vial IVPUSH 1 gm Q12H SHANNEN Administration Lorazepam 0.5 mg 03/17/24 16:28 03/17/24 16:48 Lorazepam 2 Mg/Ml Vial IVPUSH 03/17/24 16:29 0.5 mg ONCE ONE Administration Morphine Sulfate 4 mg 03/17/24 16:28 03/17/24 16:48 Morphine Sulfate 4 Mg/Ml Cartridge IVPUSH 03/17/24 16:29 4 mg ONCE ONE Administration Protocol Medical Decision Making Medical Decision Making MDM Narrative: Patient presented with dysuria hematuria clear picture consistent with UTI will we will administer antibiotic Differential Diagnosis Differential Diagnoses: The differential diagnosis associated with the presentation includes UTIs/pyelonephritis Admission/Observation Consideration of admission/observation: Escalation of care including admission/observation considered Consult Healthcare Provider Management of the patient was discussed with: Hospitalist Lab Data MDM Lab Attestation statement: I reviewed the patient's lab results. 03/17/24 13:51 03/17/24 13:51 Labs: Lab Results 03/17/24 03/17/24 Range/Units 13:51 13:52 WBC 9.1 (4.8-10.8) X10*3/uL RBC 3.90 L (4.20-5.50) X10*6/uL Hgb 13.5 (12.0-16.0) g/dl Hct 37.7 (37.0-47.0) % MCV 96.7 (80.0-98.0) fL MCH 34.6 H (27.0-33.0) pg MCHC 35.8 H (31.0-35.0) g/dl RDW 11.4 (11.0-16.0) % Plt Count 180 (160-400) X10*3/uL MPV 9.1 L (9.4-12.3) fL Immature Gran % (Auto) 0.3 (0.0-0.4) % Neut % (Auto) 87.4 H (45-73) % Lymph % (Auto) 5.5 L (20-40) % [place] % (Auto) 5.7 (2-11) % Eos % (Auto) 0.7 (0-4) % Baso % (Auto) 0.4 (0-2) % Lymph # (Auto) 0.5 L (1.2-4.9) X10*3/uL [place] # (Auto) 0.5 (0.1-1.2) X10*3/uL Eos # (Auto) 0.1 (0.0-0.4) X10*3/uL Baso # (Auto) 0.0 (0.0-0.2) X10*3/uL Abs Immat Gran (auto) 0.03 (0.00-0.03) X10*3/uL Absolute Neuts (auto) 8.0 (2.0-8.3) x10*3/uL Absolute Nucleated RBC 0.000 (0.0-0.012) X10*3/uL Nucleated RBC % (auto) 0.0 (0.0-0.2) /100WBC Sodium 135 (135-145) mmol/L Potassium 3.9 (3.3-5.1) mmol/L Chloride 99 (96-108) mmol/L Carbon Dioxide 25 (22-29) mmol/L Anion Gap 15 (12-20) BUN 3 L (9-16) mg/dL Creatinine 0.76 (0.5-1.4) mg/dL Estim Creat Clear Calc 72.4 Estimated GFR > 60 Random Glucose 187 H (60-115) mg/dL Calcium 9.6 (8.4-10.2) mg/dL Urine Color [place] Urine Appearance Cloudy Urine pH 6.5 (5.0-9.0) Ur Specific [place] 1.025 (1.005-1.025) Urine Protein See Note (Neg-Trace) mg/dL Urine Glucose (UA) See Note (Negative) mg/dL Urine Ketones See Note (Negative) mg/dL Urine Blood Large (3+) H (Negative) Urine Nitrite See Note (Negative) Ur Leukocyte Esterase Moderate (2+) H (Negative) Urine RBC >20 H (0-2) /HPF Urine WBC >50 H (0-5) /HPF Ur Squamous Epith Cells 3-5 (0-2) /HPF Urine Bacteria 4+ (None Seen) Hyaline Casts 0-2 (0-2) /LPF Urine Test NEGATIVE (NEGATIVE) Discharge Plan Discharge Clinical Impression: Pyelonephritis Patient Disposition: Admitted As Inpatient
[2024-03-17] MEDS: Morphine Sulfate 4 MG/ML CARTRIDGE IVPUSH (16:48)
[2024-03-17] MEDS: LORazepam 2 MG/ML VIAL 0.5 MG IVPUSH (16:48)
[2024-03-17] MEDS: cefTRIAXone sodium 1 GM VIAL IVPUSH (16:48)
[2024-03-17 17:18] VITALS: BP 128/88; PULSE 95; RESP 18; O2SAT 98
--- NOTE | 2024-03-17 18:32 | P.HPHOSP_ITS ---
History of Present Illness Date of Service: 03/17/24 Chief Complaint: right flank pain 33F PMH mood disorder presented with on and off dysuria and hematuria and lower abdominal pain. This has been worsening over the last day. She was sensation that ?her uterus is falling out denies fever or chills, denies sick contacts. Has had several UTIs in the past year. In ED found to have positive UA, CT abdomen with mild prominence of the renal collecting systems bilaterally without stone, wall thickening of the urinary bladder. Review of Systems 2 Review of Systems: Yes all other systems are reviewed and are negative [facility] Medical History (Updated 03/17/24 @ 18:37 by Myles Luu MD) Mood disorder Social History Smoked in Last 30 Days: No Use of substances other than those prescribed or required for medical reasons: No Advance Directives: No Advance Directives Information Provided: No Do you have a plan to hurt others: No Plan Patient : No Meds Allergies Allergy/AdvReac Type Severity Reaction Status Date / Time No Known Allergies Allergy Verified 03/17/24 13:12 [No Known Allergies*] Active Medications: Current Medications Ceftriaxone Sodium (Ceftriaxone Sodium 1 Gm Vial) 1 gm IVPUSH Q24H SHANNEN Sodium Chloride (Ns) 1,000 mls @ 999 mls/hr IVCONT .Q1H1M SHANNEN Stop: 03/17/24 19:30 Morphine Sulfate (Morphine Sulfate 2 Mg/Ml Cartridge) 2 mg IVPUSH Q3H PRN; Protocol PRN Reason: Pain, Severe (Pain Scale 7-10) Physical Exam 2 Vital Signs and Narrative: Vital Signs: Last Vital Signs Temp 98 F 03/17/24 13:09 Pulse 95 03/17/24 17:18 Resp 18 03/17/24 17:18 BP 128/88 03/17/24 17:18 Pulse Ox 98 03/17/24 17:18 O2 Del Method Room Air 03/17/24 17:18 BMI result Body Mass Index 18.5 General: AO X 3, in distress Resp: CTA bilateral, no accessory muscles used CVS: S1,S2,RRR GI: soft, non tender, non distended Neuro: motor grossly intact, alert Psych: appropriate affect, appropriate insight Results Labs 03/17/24 13:51 03/17/24 13:51 Labs: Laboratory Results - last 24 hr 03/17/24 03/17/24 13:51 13:52 MCV 96.7 MCH 34.6 H MCHC 35.8 H RDW 11.4 Plt Count 180 MPV 9.1 L Immature Gran % (Auto) 0.3 Neut % (Auto) 87.4 H Lymph % (Auto) 5.5 L [place] % (Auto) 5.7 Eos % (Auto) 0.7 Baso % (Auto) 0.4 Lymph # (Auto) 0.5 L [place] # (Auto) 0.5 Eos # (Auto) 0.1 Baso # (Auto) 0.0 Abs Immat Gran (auto) 0.03 Absolute Neuts (auto) 8.0 Absolute Nucleated RBC 0.000 Nucleated RBC % (auto) 0.0 Anion Gap 15 Estim Creat Clear Calc 72.4 Estimated GFR > 60 Random Glucose 187 H Calcium 9.6 Urine Color [place] Urine Appearance Cloudy Urine pH 6.5 Ur Specific [place] 1.025 Urine Protein See Note Urine Glucose (UA) See Note Urine Ketones See Note Urine Blood Large (3+) H Urine Nitrite See Note Ur Leukocyte Esterase Moderate (2+) H Urine RBC >20 H Urine WBC >50 H Ur Squamous Epith Cells 3-5 Urine Bacteria 4+ Hyaline Casts 0-2 Urine Test NEGATIVE Assessment and Plan (1) Pyelonephritis: Status: Acute Plan 33F PMH mood disorder presented with on and off dysuria and hematuria and lower abdominal pain Acute recurrent pyelonephritis IV ceftriaxone, follow-up cultures, pain control mood disorder continue SSRI, anxiolytics low risk for dvt - early ambulation full code given degree of discomfort and need for culture results expected to require atleast 2 midnights inpatient Quality Stroke Does the patient have a stroke diagnosis?: No VTE Prior VTE?: No VTE Risk Level:: Medical - low VTE Device Contraindication: Treatment Not Indicated VTE Drug Contraindication: Treatment Not Indicated
--- NOTE | 2024-03-17 18:42 | PHA.MEDREC ---
Addendum entered by Radha Gray RPh 03/17/24 18:49: REVIEWED BY [facility] Original Note: Pharmacy Consult ? Medication Reconciliation Pharmacy has completed the medication reconciliation. Spoke with patient to confirm medications. She was on sertraline but said she ran out a while ago . [facility] reports last bean picker was 05/25/23 for 50 mg 1 and 1/2 tab daily. Leaving off of med list. She did take hydroxyzine today.
[2024-03-17] MEDS: 0.9 % Sodium Chloride 1,000 ML 999 ML IVCONT (18:43)
[2024-03-17] MEDS: Ketorolac Tromethamine 15 MG/ML VIAL IVPUSH (19:22)
--- NOTE | 2024-03-17 19:24 | PC.NURSE ---
this rn assumed care of pt, pt a&ox4, respirations even and unlabored. pt reporting 6/10 lower abdominal pain, pt medicated per mar at this time.
[2024-03-17 19:25] LABS: Lactic Acid 1.8 mmol/L (0.5-2.0)
[2024-03-17 22:45] VITALS: BP 111/77; PULSE 83; RESP 16; TEMP 37.1
[2024-03-18 01:07] VITALS: RESP 18
[2024-03-18] MEDS: Morphine Sulfate 2 MG/ML CARTRIDGE IVPUSH ×4 (01:07→20:18)
[2024-03-18 01:08] VITALS: BP 122/64; PULSE 72; RESP 18; TEMP 36.1; O2SAT 100
[2024-03-18] MEDS: 0.9 % Sodium Chloride Flush 3 ML SYRINGE IVFLUSH ×4 (01:09→19:19)
[2024-03-18 01:17] VITALS: BMI 18.7
[2024-03-18] MEDS: hydrOXYzine HCL 25 MG TABLET PO ×3 (01:32→20:18)
[2024-03-18] MEDS: Acetaminophen 325 MG TABLET 650 MG PO (05:44)
[2024-03-18 06:41] LABS: Anion Gap 11 (12-20); Blood Urea Nitrogen 4 mg/dL (9-16); Calcium 9.2 mg/dL (8.4-10.2); Carbon Dioxide 27 mmol/L (22-29); Chloride 103 mmol/L (96-108); Creatinine Clr Calc Pharmacy 84.5; Estimated Glomerular Filt Rate > 60; Glucose Random 88 mg/dL (60-115); Magnesium 1.8 mg/dL (1.6-2.6); Potassium 4.4 mmol/L (3.3-5.1); Sodium 137 mmol/L (135-145)
[2024-03-18 06:53] LABS: Hematocrit 32.5 % (37.0-47.0); Hemoglobin 11.1 g/dl (12.0-16.0); Mean Corpuscular HGB Conc 34.2 g/dl (31.0-35.0); Mean Corpuscular Hemoglobin 33.9 pg (27.0-33.0); Mean Corpuscular Volume 99.4 fL (80.0-98.0); Mean Platelet Volume 9.9 fL (9.4-12.3); Platelet Count 158 X10*3/uL (160-400); Red Blood Count 3.27 X10*6/uL (4.20-5.50); Red Cell Distribution Width 11.1 % (11.0-16.0); White Blood Count 5.6 X10*3/uL (4.8-10.8)
[2024-03-18 07:34] VITALS: BP 109/69; PULSE 63; RESP 20; TEMP 36.2; O2SAT 98
--- NOTE | 2024-03-18 08:47 | P.PNIM_ITS ---
Subjective Subjective Date of Service: 03/18/24 Interval History: symptoms improved Physical Exam 2 Vital Signs: Vital Signs: Last Vital Signs Temp 97.2 F 03/18/24 07:34 Pulse 63 03/18/24 07:34 Resp 20 03/18/24 07:34 BP 109/69 03/18/24 07:34 Pulse Ox 98 03/18/24 07:34 O2 Del Method Room Air 03/18/24 07:34 O2 Flow Rate 99 03/17/24 22:45 BMI result Body Mass Index 18.7 General: AO X 3, no acute distress Resp: CTA bilateral, no accessory muscles used CVS: S1,S2,RRR GI: soft, non tender, non distended Neuro: motor grossly intact, alert Psych: appropriate affect, appropriate insight Objective Data Active Medications Acetaminophen (Acetaminophen 325 Mg Tablet) 650 mg PO Q6H PRN PRN Reason: Pain, Mild 1-3,fever,headache Last Admin: 03/18/24 05:44 Dose: 650 mg Documented By: ELDON Calcium Carbonate (Calcium Carbonate 750 Mg Tab.Chew) 750 mg PO Q4H PRN PRN Reason: Heartburn Ceftriaxone Sodium (Ceftriaxone Sodium 1 Gm Vial) 1 gm IVPUSH Q24H [facility] Last Admin: 03/17/24 19:32 Dose: Not Given Documented By: NIXON Non-Admin Reason: provider held med Hydroxyzine HCl (Hydroxyzine Hcl 25 Mg Tablet) 25 mg PO TID PRN PRN Reason: anxiety Last Admin: 03/18/24 01:32 Dose: 25 mg Documented By: KEYANA Magnesium Hydroxide (Milk Of Magnesia 30 Ml Oral.Susp) 30 ml PO DAILY PRN PRN Reason: Constipation Melatonin (Melatonin 3 Mg Tablet) 6 mg PO BEDTIME PRN PRN Reason: Insomnia Morphine Sulfate (Morphine Sulfate 2 Mg/Ml Cartridge) 2 mg IVPUSH Q3H PRN; Protocol PRN Reason: Pain, Severe (Pain Scale 7-10) Last Admin: 03/18/24 01:07 Dose: 2 mg Documented By: JOHN Sodium Chloride (0.9 % Sodium Chloride Flush 3 Ml Syringe) 3 ml IVFLUSH QSHIFT [facility] Last Admin: 03/18/24 07:31 Dose: 3 ml Documented By: AMANDA Labs 03/18/24 05:18 03/18/24 05:18 Labs: Laboratory Results - last 24 hr 03/17/24 03/17/24 03/17/24 13:51 13:52 19:03 MCV 96.7 MCH 34.6 H MCHC 35.8 H RDW 11.4 Plt Count 180 MPV 9.1 L Immature Gran % (Auto) 0.3 Neut % (Auto) 87.4 H Lymph % (Auto) 5.5 L [place] % (Auto) 5.7 Eos % (Auto) 0.7 Baso % (Auto) 0.4 Lymph # (Auto) 0.5 L [place] # (Auto) 0.5 Eos # (Auto) 0.1 Baso # (Auto) 0.0 Abs Immat Gran (auto) 0.03 Absolute Neuts (auto) 8.0 Absolute Nucleated RBC 0.000 Nucleated RBC % (auto) 0.0 Anion Gap 15 Estim Creat Clear Calc 72.4 Estimated GFR > 60 Random Glucose 187 H Lactic Acid 1.8 Calcium 9.6 Magnesium Urine Color [place] Urine Appearance Cloudy Urine pH 6.5 Ur Specific [place] 1.025 Urine Protein See Note Urine Glucose (UA) See Note Urine Ketones See Note Urine Blood Large (3+) H Urine Nitrite See Note Ur Leukocyte Esterase Moderate (2+) H Urine RBC >20 H Urine WBC >50 H Ur Squamous Epith Cells 3-5 Urine Bacteria 4+ Hyaline Casts 0-2 Urine Test NEGATIVE 03/18/24 05:18 MCV 99.4 H MCH 33.9 H MCHC 34.2 RDW 11.1 Plt Count 158 L MPV 9.9 Immature Gran % (Auto) Neut % (Auto) Lymph % (Auto) [place] % (Auto) Eos % (Auto) Baso % (Auto) Lymph # (Auto) [place] # (Auto) Eos # (Auto) Baso # (Auto) Abs Immat Gran (auto) Absolute Neuts (auto) Absolute Nucleated RBC 0.000 Nucleated RBC % (auto) 0.0 Anion Gap 11 L Estim Creat Clear Calc 84.5 Estimated GFR > 60 Random Glucose 88 Lactic Acid Calcium 9.2 Magnesium 1.8 Urine Color Urine Appearance Urine pH Ur Specific [place] Urine Protein Urine Glucose (UA) Urine Ketones Urine Blood Urine Nitrite Ur Leukocyte Esterase Urine RBC Urine WBC Ur Squamous Epith Cells Urine Bacteria Hyaline Casts Urine Test Assessment and Plan (1) Pyelonephritis: Status: Acute Plan 33F PMH mood disorder presented with on and off dysuria and hematuria and lower abdominal pain Acute recurrent pyelonephritis IV ceftriaxone, follow-up cultures, pain control mood disorder atarax low risk for dvt - early ambulation full code reason for continued hospitalization:awaiting culture Quality Stroke Does the patient have a stroke diagnosis?: No VTE Prior VTE?: No VTE Risk Level:: Medical - low VTE Device Contraindication: Treatment Not Indicated VTE Drug Contraindication: Treatment Not Indicated
[2024-03-18 15:06] VITALS: BP 110/63; PULSE 63; RESP 18; TEMP 36.2; O2SAT 99
--- NOTE | 2024-03-18 15:08 | MHC.CM.PN ---
PT REPORTS SHE LIVES WITH HER S/O AND IS INDEPENDENT WITH CARE SHE HAS NO SERVICES AND NO DME PT DOES NOT HAVE A PCP, LIST PROVIDED SHE WILL COMPLETE A HCP TODAY NAMING SD MCCARTHY [phone], HER AGENT DCP: HOME VIA PRIVATE TRANSPORT
[2024-03-18 19:03] VITALS: BP 112/78; PULSE 85; RESP 18; TEMP 36.2; O2SAT 100
[2024-03-18] MEDS: cefTRIAXone sodium 1 GM VIAL IVPUSH (19:18)
[2024-03-18] MEDS: Melatonin 3 MG TABLET 6 MG PO (22:11)
[2024-03-19 03:18] VITALS: BP 117/72; PULSE 62; RESP 16; TEMP 36.1; O2SAT 99
[2024-03-19 07:33] VITALS: BP 119/80; PULSE 64; RESP 16; TEMP 36.8; O2SAT 99
--- NOTE | 2024-03-19 09:19 | P.DS_ITS ---
DS: Providers Provider Date of Service: 03/19/24 Date of admission: 03/17/24 18:31 Date of discharge: 03/19/24 Primary care physician: None Physician Consults: 03/18/24 01:16 Addiction Medicine Routine Consulting Provider: Addiction Covering Reason for consultation: etoh Has provider been notified: Yes DS: Diagnosis Discharge Diagnosis (1) Pyelonephritis: Status: Acute DS: Summary Hospital Course Hospital Course: from initial hpi: 33F PMH mood disorder presented with on and off dysuria and hematuria and lower abdominal pain. This has been worsening over the last day. She was sensation that ?her uterus is falling out denies fever or chills, denies sick contacts. Has had several UTIs in the past year. In ED found to have positive UA, CT abdomen with mild prominence of the renal collecting systems bilaterally without stone, wall thickening of the urinary bladder. hospital course: Pyelonephritis. Was treated with IV ceftriaxone and the urine culture grew E coli that was pansensitive, blood cultures are negative. Patient's pain was controlled and will transitioned to 7 more days of p.o. cefuroxime. For mood disorder was continued on Atarax. Patient is feeling better will be discharged home. Time Attestation Discharge Coordination Time (in mins): 32 Quality: Safe Use of Opioids Does Pt have an Active Cancer Diagnosis on the Problem List?: No Quality: Stroke Does the patient have a stroke diagnosis?: No Physical Exam Vital Signs: Vital Signs: Last Vital Signs Temp 98.2 F 03/19/24 07:33 Pulse 64 03/19/24 07:33 Resp 16 03/19/24 07:33 BP 119/80 03/19/24 07:33 Pulse Ox 99 03/19/24 07:33 O2 Del Method Room Air 03/19/24 07:33 O2 Flow Rate 99 03/17/24 22:45 BMI result Body Mass Index 18.7 General: AO X 3, no acute distress Resp: CTA bilateral, no accessory muscles used CVS: S1,S2,RRR GI: soft, non tender, non distended Neuro: motor grossly intact, alert Psych: appropriate affect, appropriate insight DS: Data Data Completed and Pending Labs on day of discharge: Preliminary micro results at discharge 03/17/24 19:11 Blood Culture - Preliminary Blood - Venous No growth after 24 hours. 03/17/24 19:03 Blood Culture - Preliminary Blood - Venous No growth after 24 hours. Discharge Plan Discharge Anticipated Discharge Date/Time: 03/19/24 09:17 Patient Disposition: Home, Self-Care Discharge Diagnosis: pyelonephritis Referrals: Physician,None [Primary Care Provider] - 1 Week Discharge Medications: New cefuroxime axetil 500 mg tablet 500 mg PO BID Qty: 14 0RF Continued hydroxyzine HCl 25 mg tablet 25 mg PO TID PRN (Reason: anxiety) ibuprofen [Advil] 200 mg Tablet 400 mg PO Q6H PRN (Reason: Pain) Discharge Orders: Discharge Order (Routine); Ordered 03/19/24 Ordered By: Myles Luu Diet: Advance to usual diet Activity on Discharge: As tolerated Stand Alone Forms: Patient Portal Discharge page Print Language: Turkish Care Plan Goals: recovery Health Concerns: pyelonephritis Plan of Treatment: cefuroxime for 7 more days Assessment: see above Patient Instructions: Kidney Infection (GEN)
[2024-03-19] MEDS: 0.9 % Sodium Chloride Flush 3 ML SYRINGE IVFLUSH (09:28)
--- NOTE | 2024-03-19 09:44 | MHC.CM.PN ---
PATIENT MEDICALLY CLEARED FOR DC HOME SELF CARE VIA PRIVATE TRANSPORT AT 10AM. RN AWARE.
--- NOTE | 2024-03-19 09:57 | PM.EVENT ---
Event Note Date of Service: 03/19/24 Event Note: Patient with + AUDIT C screen Declined brief intervention Time Spent With Patient Time: Total time managing care of this patient today ____ minutes.
== END 2024-03-19 10:21 | disposition home or self-care (01) | DRG 463 ==
LOC: HO.ED 18:23 → HO.EDOVER 18:35 → HO.S3 23:52
PROVIDERS: Admitting Provider Internal Medicine; Emergency Provider Emergency Medicine; Visit Provider Internal Medicine
DX: N10 Acute pyelonephritis (principal); B96.20 Unspecified Escherichia coli [E. coli] as the cause of diseases classified elsewhere; F17.210 Nicotine dependence, cigarettes, uncomplicated; R31.9 Hematuria, unspecified; F39 Unspecified mood [affective] disorder; Z71.6 Tobacco abuse counseling; Z87.440 Personal history of urinary (tract) infections; Z79.899 Other long term (current) drug therapy
CPT/HCPCS: 36415; 74176; 76830; 76856; 80048; 81001; 81003; 81025; 83605; 83735; 85025; 85027; 87040; 87086; 87088; 87186; 99221; 99285; J0696; J1885; J2060; J2270

== ENCOUNTER → 2024-03-17 16:35 | Outpatient (BNV) | payer OTHER, SELFPAY | PROVIDERS: Emergency Provider Emergency Medicine; Visit Provider Radiology Diagnostic Radiology | DX: N39.0 Urinary tract infection, site not specified (principal); N83.291 Other ovarian cyst, right side; N83.292 Other ovarian cyst, left side | CPT/HCPCS: 74176; 76830; 76856; 93976 ==

== ENCOUNTER → 2024-03-17 18:31 | Outpatient (BNV) | payer OTHER, SELFPAY | PROVIDERS: Admitting Provider Internal Medicine; Emergency Provider Emergency Medicine; Visit Provider Internal Medicine | DX: N12 Tubulo-interstitial nephritis, not specified as acute or chronic (principal) | CPT/HCPCS: 99222; 99231; 99239 ==

== ENCOUNTER 2024-04-16 12:10 | Emergency (ER) | payer OTHER, SELFPAY ==
[2024-04-16 12:43] VITALS: BP 133/85; PULSE 108; RESP 18; TEMP 36.6; O2SAT 99; BMI 18.5
--- NOTE | 2024-04-16 13:02 | ED_ITS ---
HPI - Female Genitourinary General Chief complaint: Urogenital-Female Stated complaint: Kidney Infection Time Seen by Provider: 04/16/24 16:06 Source: patient, RN notes reviewed and old records reviewed Mode of arrival: ambulatory Limitations: no limitations History of Present Illness ED Provider: Maame HARDIN Narrative: 33-year-old female presents for evaluation blood in her urine. Patient was admitted about a month ago for pyelonephritis She completed a week's worth of cefuroxime after being treated with IV ceftriaxone. She states that the blood in her urine did resolve for a few days but then returned She has no pain, burning with urination, frequency or flank pain. She had a pelvic ultrasound on 03/17/2024 that showed bilateral simple ovarian cysts. She also had an abdominal pelvic CT scan which showed findings consistent with pyelonephritis The patient reports that she has had frequent UTI since September. She reports that she has had a recent pelvic exam that did not show any concerning findings She was concerned about the blood in her urine She also reports a her menstrual cycle has been irregular over the last few months Related Data Home Medications ?Medication ?Instructions ?Recorded ?Confirmed hydroxyzine HCl 25 mg tablet 25 mg PO TID PRN anxiety 03/17/24 03/17/24 ibuprofen 200 mg tablet (Advil) 400 mg PO Q6H PRN Pain 03/17/24 03/17/24 Previous Rx's ?Medication ?Instructions ?Recorded cefuroxime axetil 500 mg tablet 500 mg PO BID #14 tabs 03/19/24 Allergies Allergy/AdvReac Type Severity Reaction Status Date / Time No Known Allergies Allergy Verified 04/16/24 12:45 [No Known Allergies*] Review of Systems 2 Constitutional: Constitutional: Denies body ache(s), Denies chills, Denies fever(s) and Denies headache(s) Eyes: Eyes: Denies blurry vision ENT: Denies vertigo, Denies dizziness and Denies headache(s) Cardiovascular: Cardiovascular: Denies chest pain and Denies dyspnea Respiratory: Respiratory: Denies cough and Denies dyspnea Gastrointestinal: Gastrointestinal: Denies abdominal pain, Denies nausea and Denies vomiting Genitourinary: Genitourinary: Reports hematuria, Denies pelvic pain and Denies vaginal discharge Musculoskeletal: Musculoskeletal: Denies back pain Integumentary/Breasts: Skin/Breast: Denies rash Neurologic: Denies vertigo, Denies dizziness and Denies headache(s) [facility] Past Medical History Medical History (Updated 04/16/24 @ 16:45 by Aaron Isabel) Mood disorder Social History Social History Household Members: Family Housing: Apartment Do you presently have visiting nurse or other home services: No Patient Tobacco Use Status: Current everyday Tobacco user Smoked in Last 30 Days: No e-Cigarette/Vaping Use: Currently Using Use of substances other than those prescribed or required for medical reasons: No Advance Directives: No Advance Directives Information Provided: Yes Do you have a plan to hurt others: No Plan Patient : No service: No Physical Exam 2 Vital Signs: Vital Signs: Last Vital Signs Temp 98.4 F 04/16/24 16:59 Pulse 106 H 04/16/24 16:59 Resp 18 04/16/24 16:59 BP 112/80 04/16/24 16:59 Pulse Ox 97 04/16/24 16:59 O2 Del Method Room Air 04/16/24 16:59 BMI result Body Mass Index 18.5 Const: General: healthy appearing, comfortable, no acute distress, alert and awake Nutritional Appearance: well nourished Orientation/consciousness: p atient oriented x3 HEENT: Head: Yes normocephalic and Yes atraumatic Eyes: Eyelids: Yes eyelids normal Conjunctivae: conjunctivae normal S clerae: sclerae normal Corneas: corneas normal Pupils: Equal, round and reactive pupils present EOM: EOMs intact bilaterally Neck: Neck: Yes full ROM Resp: Effort & Inspection: normal respiratory effort, able to speak in complete sentences and not labored GI: Inspection: No distended Palpation (GI): Soft to palpation, not firm, nontender, no guarding and not rigid Skin: General skin exam: elasticity normal Neuro: General: patient oriented x3 Cranial nerves: Yes Equal, round and reactive pupils present and Yes Bilaterally intact EOM present Cognition (Neuro): normal cognition Course Course Course Narrative: This is an RME: Additional HPI, ROS, PE not included below will be deferred to primary provider. RME assessment and note performed by: Annia Lipscomb PA-C This is a 33-year-old female who presents emergency department with concerns for ? Ongoing kidney infection. He finished her antibiotics but still remains to have blood in her urine. Pain has improved however does report right-sided pain that comes and goes. No dysuria, shortness for breath or chest pain. Plan: Labs, UA, further ER evaluation needed Medical Decision Making Medical Decision Making [facility] Narrative: 33-year-old female presents for evaluation of hematuria. She has no UTI symptoms, no vaginal bleeding or discharge. She had a recent abdominal CT scan and pelvic ultrasound I reviewed both these reports. Her labs are reassuring, she is not anemic. Chemistries are unremarkable. Patient's urinalysis appears contaminated, there are no white cells, there are is significantly of epithelial cells and 2+ bacteria which is likely from the skin cell contamination. There was no nitrites. I discussed treatment with the patient. I offered a pelvic examination which she declines. I also offered 1 additional course of antibiotics which she declines. The patient referred to Urology for a cystoscopy. I have no suspicion for tubo-ovarian abscesses she has no pelvic pain, fever, leukocytosis or vaginal discharge. Less likely PID for the same reasons. Also less likely ovarian torsion as she has no abdominal pain or pelvic pain Differential Diagnosis Differential Diagnoses: The differential diagnosis associated with the presentation includes Hematuria Cystitis Bladder cancer Obstructive uropathy PID Lab Data [facility] Lab Attestation statement: I reviewed the patient's lab results. No leukocytosis or anemia. Normal platelet count. No electrolyte abnormalities. The patient is not 04/16/24 13:32 04/16/24 13:32 Labs: Lab Results 04/16/24 Range/Units 13:32 WBC 5.8 (4.8-10.8) X10*3/uL RBC 4.26 D (4.20-5.50) X10*6/uL Hgb 14.3 D (12.0-16.0) g/dl Hct 41.1 D (37.0-47.0) % MCV 96.5 (80.0-98.0) fL MCH 33.6 H (27.0-33.0) pg MCHC 34.8 (31.0-35.0) g/dl RDW 12.0 (11.0-16.0) % Plt Count 197 (160-400) X10*3/uL MPV 9.5 (9.4-12.3) fL Immature Gran % (Auto) 0.2 (0.0-0.4) % Neut % (Auto) 71.4 (45-73) % Lymph % (Auto) 19.2 L (20-40) % [place] % (Auto) 6.6 (2-11) % Eos % (Auto) 2.1 (0-4) % Baso % (Auto) 0.5 (0-2) % Lymph # (Auto) 1.1 L (1.2-4.9) X10*3/uL [place] # (Auto) 0.4 (0.1-1.2) X10*3/uL Eos # (Auto) 0.1 (0.0-0.4) X10*3/uL Baso # (Auto) 0.0 (0.0-0.2) X10*3/uL Abs Immat Gran (auto) 0.01 (0.00-0.03) X10*3/uL Absolute Neuts (auto) 4.1 (2.0-8.3) x10*3/uL Absolute Nucleated RBC 0.000 (0.0-0.012) X10*3/uL Nucleated RBC % (auto) 0.0 (0.0-0.2) /100WBC Sodium 135 (135-145) mmol/L Potassium 5.1 (3.3-5.1) mmol/L Chloride 100 (96-108) mmol/L Carbon Dioxide 23 (22-29) mmol/L Anion Gap 17 (12-20) BUN 6 L (9-16) mg/dL Creatinine 0.74 (0.5-1.4) mg/dL Estim Creat Clear Calc 74.5 Estimated GFR > 60 Random Glucose 119 H (60-115) mg/dL Calcium 9.6 (8.4-10.2) mg/dL Total Bilirubin 0.7 (0.0-1.0) mg/dL Direct Bilirubin 0.2 (0.0-0.5) mg/dL AST 86 H (5-31) U/L ALT 41 H (0-31) U/L Alkaline Phosphatase 66 (39-117) U/L Total Protein 8.4 H (6.5-8.0) g/dL Albumin 4.4 (3.5-5.0) g/dL Beta HCG, Quant < 2 mIU/mL Urine Color Dark [place] Urine Appearance Cloudy Urine pH 6.5 (5.0-9.0) Ur Specific [place] 1.020 (1.005-1.025) Urine Protein 100 (2+) H (Neg-Trace) mg/dL Urine Glucose (UA) Negative (Negative) mg/dL Urine Ketones 15 (Negative) mg/dL Urine Blood Large (3+) H (Negative) Urine Nitrite Negative (Negative) Ur Leukocyte Esterase Trace H (Negative) Urine RBC 11-20 H (0-2) /HPF Urine WBC 0-5 (0-5) /HPF Ur Squamous Epith Cells >20 (0-2) /HPF Urine Bacteria 2+ (None Seen) Hyaline Casts 6-10 (0-2) /LPF Discharge Plan Discharge Clinical Impression: Hematuria Patient Disposition: Home, Self-Care Instructions: Hematuria (ED) Additional Instructions: Your workup in the ER today was reassuring. Your blood counts were within normal limits. Your urine sample did show blood I do recommend that you follow-up with Urology for a cystoscopy You may follow up with the offices of Dr. Woodruff at the number provided Return for new or worsening symptoms Prescriptions: No Action hydroxyzine HCl 25 mg tablet 25 mg PO TID PRN (Reason: anxiety) ibuprofen [Advil] 200 mg Tablet 400 mg PO Q6H PRN (Reason: Pain) cefuroxime axetil 500 mg tablet 500 mg PO BID Qty: 14 0RF Referrals: Lit Woodruff MD [Physician] - (hematuria) Interventions: ED Discharge Assessment Last Done: 04/16/24 16:59 Discharge Date/Time: 04/16/24 17:01 Print Language: Portuguese
[2024-04-16 13:39] LABS: MANUAL DIFF FLAG NO
[2024-04-16 13:41] LABS: Appearance Urine Cloudy; Basophils Percent Auto 0.5 % (0-2); Color Urine Dark Yellow; Eosinophils Absolute Auto 0.1 X10*3/uL (0.0-0.4); Eosinophils Percent Auto 2.1 % (0-4); Glucose Urine UA Negative (Negative); Hematocrit 41.1 % (37.0-47.0); Hemoglobin 14.3 g/dl (12.0-16.0); Imm Gran Abs Auto 0.01 X10*3/uL (0.00-0.03); Imm Gran Pct Auto 0.2 % (0.0-0.4); Leukocyte Esterase Urine Trace (Negative); Lymphocytes Absolute Auto 1.1 X10*3/uL (1.2-4.9); Lymphocytes Percent Auto 19.2 % (20-40); Mean Corpuscular HGB Conc 34.8 g/dl (31.0-35.0); Mean Corpuscular Hemoglobin 33.6 pg (27.0-33.0); Mean Corpuscular Volume 96.5 fL (80.0-98.0); Mean Platelet Volume 9.5 fL (9.4-12.3); Monocytes Absolute Auto 0.4 X10*3/uL (0.1-1.2); Monocytes Percent Auto 6.6 % (2-11); Neutrophils Absolute Auto 4.1 x10*3/uL (2.0-8.3); Neutrophils Percent Auto 71.4 % (45-73); Nitrite Urine Negative (Negative); PH 6.5 (5.0-9.0); Platelet Count 197 X10*3/uL (160-400); Red Blood Count 4.26 X10*6/uL (4.20-5.50); UMIC TRIGGER UACC YES; Urine Blood Large (3+) (Negative); Urine Ketones 15 mg/dL (Negative); Urine Protein 100 (2+) mg/dL (Neg-Trace); White Blood Count 5.8 X10*3/uL (4.8-10.8)
[2024-04-16 13:49] LABS: Bacteria Urine 2+ (None Seen); Squamous Epithelial Cell Urine >20 /HPF (0-2); WBC Urine 0-5 /HPF (0-5)
[2024-04-16 14:04] LABS: Alanine Aminotransferase 41 U/L (0-31); Albumin Level 4.4 g/dL (3.5-5.0); Alkaline Phosphatase 66 U/L (39-117); Anion Gap 17 (12-20); Aspartate Amino Transferase 86 U/L (5-31); Bilirubin Direct 0.2 mg/dL (0.0-0.5); Bilirubin Total 0.7 mg/dL (0.0-1.0); Blood Urea Nitrogen 6 mg/dL (9-16); Calcium 9.6 mg/dL (8.4-10.2); Carbon Dioxide 23 mmol/L (22-29); Chloride 100 mmol/L (96-108); Creatinine Clr Calc Pharmacy 74.5; Estimated Glomerular Filt Rate > 60; Glucose Random 119 mg/dL (60-115); HCG Quantitative < 2 mIU/mL; Potassium 5.1 mmol/L (3.3-5.1); Sodium 135 mmol/L (135-145); Total Protein 8.4 g/dL (6.5-8.0)
--- NOTE | 2024-04-16 16:08 | PC.NURSE ---
Pt comes to ED today for ongoing hematuria. Pt reports dark red blood in urine for 3+ weeks; states she was seen her approx 3-4 weeks ago for same complaint. Today Pt states pain is 3/10 to bilat lower abd that is cramping in nature and intermittent. She states this is different from previous times where pain was much more intense. A&Ox3 Skin is warm and dry Breaths and speech are unlabored. NAD noted at this time. Pt had preliminary lab work done by triage. Awaiting ED provider and new orders.
[2024-04-16 16:59] VITALS: BP 112/80; PULSE 106; RESP 18; TEMP 36.9; O2SAT 97
== END 2024-04-16 17:01 | disposition home or self-care (01) ==
PROVIDERS: Physician Assistant Medical; Emergency Provider Emergency Medicine
DX: R31.9 Hematuria, unspecified (principal); Z79.899 Other long term (current) drug therapy
CPT/HCPCS: 36415; 80048; 80076; 81001; 84702; 85025; 99283; 99284